=== PATIENT | male | born 1995 | race Two or more races ===

== ENCOUNTER 2016-06-05 19:41 | Emergency (ER) | payer OTHER ==
[~2016-06-05] VITALS: Ht 180.3 cm; Wt 93.8 kg
[2016-06-05] MEDS ORDERED: FIORICET,ESG1 TABLET PO (23:33)
[2016-06-05 23:59] VITALS: BP 134/72
== END 2016-06-06 | disposition home or self-care (01) ==
LOC: EME 19:41
DX: R51 Headache (principal); R42 Dizziness and giddiness; H53.149 Visual discomfort, unspecified
CPT/HCPCS: 70450; 99281; 99285; J0780; J1100; J7030

== ENCOUNTER 2016-07-14 16:00 | Inpatient (IN) | payer OTHER ==
[~2016-07-14] VITALS: Ht 180.3 cm; Wt 91.5 kg
[~2016-07-14 16:00] MED LIST: FIORICET,ESG1 TABLET PO
[2016-07-14 16:47] LABS: EOSINOPHIL (%) 1.6 % (0-5); EOSINOPHIL COUNT 0.2 K/uL (0-0.3); HEMATOCRIT 46.6 % (38.0-50.0); IMMATURE GRANULOCYTE (%) 0.2 % (0.0-0.7); LYMPHOCYTE COUNT 2.3 K/uL (1.0-2.8); MCH 30.1 PG (29.0-34.0); MCHC 33.5 G/DL (30.0-36.0); MCV 89.8 FL (86-99); MONOCYTE (%) 7.6 % (3-12); MONOCYTE COUNT 0.8 K/uL (0-0.8); NEUTROPHIL (%) 67.6 % (45-76); PLATELET COUNT 262 K/uL (156-360); RBC DIS.WIDTH-CV 12.1 % (11.8-14.6); RBC DIS.WIDTH-SD 40.3 % (39-53); RED BLOOD COUNT 5.19 M/uL (4.00-5.50); WHITE BLOOD COUNT 10.3 K/uL (4.1-10.2)
[2016-07-14 16:56] LABS: CHLORIDE 105 mEq/L (99-109); POTASSIUM 4.1 mEq/L (3.7-5.4); SODIUM 139 mEq/L (136-147)
[2016-07-14 16:59] LABS: GLUCOSE 92 mg/dL (70-99)
[2016-07-14 17:00] LABS: ANION GAP 11 MEQ/L (2-14); TOTAL BILIRUBIN 0.3 mg/dL (0.0-1.0)
[2016-07-14 17:01] LABS: SERUM ETHYL ALCOHOL < 10 mg/dL
[2016-07-14 17:02] LABS: ALKALINE PHOSPHATASE 102 IU/L (3-129); GFR ESTIMATE (CALCULATED) > 59 mL/min/
[2016-07-14 17:03] LABS: UREA NITROGEN (BUN) 18 mg/dL (9-23)
[2016-07-14 18:03] LABS: ADD MEDTOX COMMENT Y; AMPHETAMINE NEGATIVE (500 ng/mL); BARBITURATES PRESUMPTIVE POSITIVE (200 ng/mL); BENZODIAZEPINES NEGATIVE (150 ng/mL); COCAINE NEGATIVE (150 ng/mL); INTERNAL CONTROLS VALID? YES; METHADONE NEGATIVE (200 ng/mL); METHAMPHETAMINE NEGATIVE (500 ng/mL); OPIATES (MORPHINE) NEGATIVE (100 ng/mL); OXYCODONE NEGATIVE (100 ng/mL); PHENCYCLIDINE NEGATIVE (25 ng/mL); PROPOXYPHENE NEGATIVE (300 ng/mL); THC CANNABINOIDS NEGATIVE (50 ng/mL); TRICYCLIC ANTIDEPRESSANTS NEGATIVE (300 ng/mL)
[2016-07-14 19:26] VITALS: BP 145/83
[2016-07-14 19:38] VITALS: BP 145/83
[2016-07-15 07:54] VITALS: BP 103/61
[2016-07-15 15:30] VITALS: BP 130/74
[2016-07-16 07:36] VITALS: BP 113/69
[2016-07-16 15:53] VITALS: BP 123/67
[2016-07-17 07:46] VITALS: BP 107/65
[2016-07-17 15:34] VITALS: BP 139/75
[2016-07-18 07:21] VITALS: BP 121/80
[2016-07-18] MEDS ORDERED: RISPERDAL2 MG PO (09:10)
== END 2016-07-18 14:00 | disposition home or self-care (01) | DRG 885 ==
LOC: EME 16:00 → EDOF 18:32 → 1WEST 18:32
PROVIDERS: Emergency Medicine
DX: F29 Unspecified psychosis not due to a substance or known physiological condition (principal); R45.850 Homicidal ideations; K59.00 Constipation, unspecified; G47.00 Insomnia, unspecified
CPT/HCPCS: 80053; 84999; 85025; 90837; 97150 GO; 97165 GO; 99281; 99284; G0480

== ENCOUNTER 2016-12-07 10:22 | Emergency (ER) | payer OTHER ==
[~2016-12-07] VITALS: Ht 180.3 cm; Wt 95.6 kg
[~2016-12-07 10:22] MED LIST changes: +RISPERDAL2 MG PO
[2016-12-07 12:13] LABS: HEMATOCRIT 48.9 % (38.0-50.0); MCH 29.2 PG (29.0-34.0); MCHC 32.7 G/DL (30.0-36.0); MCV 89.2 FL (86-99); MEAN PLAT.VOLUME 10.4 uM^3 (9.0-12.4); PLATELET COUNT 262 K/uL (156-360); RBC DIS.WIDTH-CV 12.7 % (11.8-14.6); RED BLOOD COUNT 5.48 M/uL (4.00-5.50); WHITE BLOOD COUNT 6.9 K/uL (4.1-10.2)
[2016-12-07 12:26] LABS: CHLORIDE 102 mEq/L (99-109)
[2016-12-07 12:27] LABS: SODIUM 139 mEq/L (136-147)
[2016-12-07 12:29] LABS: GLUCOSE 95 mg/dL (70-99)
[2016-12-07 12:30] LABS: ANION GAP 11 MEQ/L (2-14)
[2016-12-07 12:31] LABS: TOTAL BILIRUBIN 0.5 mg/dL (0.0-1.0)
[2016-12-07 12:32] LABS: ALKALINE PHOSPHATASE 115 IU/L (3-129); GFR ESTIMATE (CALCULATED) > 59 mL/min/
[2016-12-07 12:34] LABS: UREA NITROGEN (BUN) 16 mg/dL (9-23)
[2016-12-07 12:36] LABS: LIPASE 17 U/L (1.0-51.0)
[2016-12-07] MEDS ORDERED: NAPROSYN500 MG PO (13:17)
[2016-12-07] MEDS ORDERED: FLEXERIL10 MG PO (13:17)
[2016-12-07 13:34] LABS: ADD MIUA? YES; BILIRUBIN NEGATIVE; BLOOD MODERATE; COLOR YELLOW ((YELLOW)); GLUCOSE (STRIP) NEGATIVE; KETONES NEGATIVE; LEUKOCYTES NEGATIVE; NITRITE NEGATIVE; PROTEIN (STRIP) 30; UROBILINOGEN 0.2 MG/DL (0.2-1.0)
[2016-12-07 13:39] LABS: BACTERIA NONE SEEN /HPF; EPITHELIAL CELLS RARE /HPF; MUCUS TRACE /LPF; RED BLOOD CELLS 0-5 /HPF (0-5); UCUL ADDED? NO; WHITE BLOOD CELLS 0-5 /HPF (0-5)
[2016-12-07 14:03] VITALS: BP 141/94
== END 2016-12-07 14:03 | disposition home or self-care (01) ==
LOC: EME 10:22
PROVIDERS: Nurse Practitioner Family
DX: M54.42 Lumbago with sciatica, left side (principal); M54.41 Lumbago with sciatica, right side; R50.9 Fever, unspecified; R11.2 Nausea with vomiting, unspecified
CPT/HCPCS: 71020; 74000; 80053; 81003; 83690; 85027; 99281; 99284